=== PATIENT | male | born 1945 | race Caucasian/White ===

== ENCOUNTER 2020-03-07 21:51 | Inpatient (IN) | payer MEDICARE, OTHER ==
[~2020-03-07] VITALS: Ht 182.9 cm; Wt 88.0 kg
[2020-03-07 21:57] VITALS: BP 140/82
[2020-03-07] MEDS ORDERED: SAW PALMETTO160 MG PO (22:03)
[2020-03-07 22:30] LABS: ABSOLUTE BASOPHILS 0.1 thou/uL (0.0-0.2); ABSOLUTE LYMPHOCYTES 0.8 thou/uL (0.8-5.3); ABSOLUTE MONOCYTES 0.3 thou/uL (0.0-1.2); ABSOLUTE NEUTROPHILS 6.6 thou/uL (1.6-8.1); BASOPHILS 0.9 %; HEMATOCRIT 42.9 % (42.0-52.0); HEMOGLOBIN 14.5 gm/dL (14.0-18.0); LYMPHOCYTES 9.8 %; MCH 29.2 pg (26.0-34.0); MCHC 33.9 g/dL (28.0-37.0); MCV 86.3 fL (80.0-100.0); MONOCYTES 4.5 %; MPV 7.7 fl. (7.2-11.1); NUCLEATED RBCS 0 /100WBC; PLATELET COUNT* 196 thou/uL (150-400); POLYS 84.8 %; RBC 4.97 mil/uL (4.50-6.00); RDW-CV 13.5 % (10.5-14.5); WBC 7.7 thou/uL (4.0-11.0)
[2020-03-07 22:39] LABS: BE -1.2 mmol/L (-2 to +3); PCO2 30.6 mmHg (35.0-45.0); PO2 67.9 mmHg (75.0-100.0); pH 7.462 (7.340-7.450)
[2020-03-07 22:54] LABS: CALCIUM 8.3 mg/dL (8.5-10.1); POTASSIUM 3.1 mmol/L (3.5-5.1)
[2020-03-07 22:58] LABS: ALBUMIN 3.4 g/dL (3.4-5.0); TOTAL BILIRUBIN 0.7 mg/dL (<0.1-1.0); TOTAL PROTEIN 6.5 g/dL (6.4-8.2)
[2020-03-08] VITALS (7 sets, daily range): BP systolic 106–130; BP diastolic 56–73
[2020-03-08 02:13] LABS: URINE BILIRUBIN NEGATIVE (Negative); URINE BLOOD NEGATIVE (Negative); URINE CLARITY CLEAR; URINE COLOR YELLOW; URINE GLUCOSE-RANDOM NEGATIVE (Negative); URINE KETONES 2+ (Negative); URINE LEUKOCYTES-REFLEX NEGATIVE (Negative); URINE NITRITE-REFLEX NEGATIVE (Negative); URINE PROTEIN TRACE (Negative); URINE SPECIFIC GRAVITY >= 1.030 (1.005-1.030); URINE UROBILINOGEN 0.2 E.U./dl (0.2-1.0)
[2020-03-08 09:33] LABS: CALCIUM 8.5 mg/dL (8.5-10.1)
[2020-03-08 09:34] LABS: POTASSIUM 4.1 mmol/L (3.5-5.1)
[2020-03-08 09:36] LABS: MAGNESIUM 2.1 mg/dL (1.8-2.4); PHOSPHORUS* 3.7 mg/dL (2.5-4.9)
--- NOTE | 2020-03-08 16:15 | EKG ---
[place] [address] ELECTROCARDIOGRAM REPORT Name: JULIAN LAKE Room: [address] IN .R.#: [id number] Admission: 03/08/20 Attend Phys: Luz Song Discharge: Date of : 41 Date of Service: 03/07/202232 Report #: [id number] THIS REPORT FOR: //name// [facility] ED Test Date: 2020-03-07 Test Time: 22:33:29 Pat Name: JULIAN LAKE Department: Room: [facility] Gender: M Filler Picker: [facility] : 1945 Requested By: Sarina Thorpe Order Number: [id number] MD: Renzo Whitaker Measurements Intervals [place] Rate: 94 P: 58 HI: 139 QRS: 17 QRSD: 107 T: 34 QT: 359 QTc: 449 Interpretive Statements Sinus rhythm Minimal ST elevation, anterior leads No previous ECG available for comparison Electronically Signed On 03-08-2020 16:14:59 SETTLEMENT PROCESSOR by Renzo Whitaker [email or web address] <ELECTRONICALLY SIGNED> By: Renzo Whitaker MD, [facility] 03/08/20 1614 32 32 Renzo Whitaker MD, [facility] /EPI
[2020-03-09] VITALS (7 sets, daily range): BP systolic 97–126; BP diastolic 48–70
[2020-03-09 03:52] LABS: HEMATOCRIT 41.5 % (42.0-52.0); HEMOGLOBIN 13.7 gm/dL (14.0-18.0); MCH 28.8 pg (26.0-34.0); MCHC 33.1 g/dL (28.0-37.0); MCV 87.1 fL (80.0-100.0); RBC 4.77 mil/uL (4.50-6.00); RDW-CV 13.9 % (10.5-14.5); WBC 14.2 thou/uL (4.0-11.0)
[2020-03-09 04:19] LABS: ALBUMIN 3.2 g/dL (3.4-5.0); CALCIUM 8.8 mg/dL (8.5-10.1); CREATININE 1.3 mg/dL (0.6-1.3); MAGNESIUM 2.1 mg/dL (1.8-2.4); POTASSIUM 4.1 mmol/L (3.5-5.1); TOTAL BILIRUBIN 0.4 mg/dL (<0.1-1.0); TOTAL PROTEIN 6.1 g/dL (6.4-8.2)
[2020-03-10] VITALS (8 sets, daily range): BP systolic 101–148; BP diastolic 59–73
[2020-03-10 05:36] LABS: HEMATOCRIT 39.3 % (42.0-52.0); HEMOGLOBIN 13.1 gm/dL (14.0-18.0); MCH 28.7 pg (26.0-34.0); MCHC 33.3 g/dL (28.0-37.0); MCV 86.2 fL (80.0-100.0); MPV 7.8 fl. (7.2-11.1); NUCLEATED RBCS 0 /100WBC; PLATELET COUNT* 248 thou/uL (150-400); RBC 4.56 mil/uL (4.50-6.00); RDW-CV 13.8 % (10.5-14.5); WBC 14.8 thou/uL (4.0-11.0)
[2020-03-10 05:51] LABS: CALCIUM 8.4 mg/dL (8.5-10.1); POTASSIUM 4.1 mmol/L (3.5-5.1); TOTAL BILIRUBIN 0.5 mg/dL (<0.1-1.0); TOTAL PROTEIN 6.1 g/dL (6.4-8.2)
[2020-03-10 06:11] LABS: ABSOLUTE LYMPHOCYTES 0.6 thou/uL (0.8-5.3); ABSOLUTE MONOCYTES 0.1 thou/uL (0.0-1.2); ABSOLUTE NEUTROPHILS 14.1 thou/uL (1.6-8.1); ATYPICAL LYMPHS 1 %; PLATELET ESTIMATE ADEQUATE
[2020-03-11 00:55] VITALS: BP 134/58
[2020-03-11 04:00] VITALS: BP 124/59
[2020-03-11 05:27] LABS: ABSOLUTE LYMPHOCYTES 0.5 thou/uL (0.8-5.3); ABSOLUTE MONOCYTES 0.4 thou/uL (0.0-1.2); ABSOLUTE NEUTROPHILS 14.6 thou/uL (1.6-8.1); BASOPHILS 0.1 %; HEMOGLOBIN 13.7 gm/dL (14.0-18.0); LYMPHOCYTES 3.1 %; MCH 28.8 pg (26.0-34.0); MCHC 33.4 g/dL (28.0-37.0); MONOCYTES 2.5 %; MPV 7.6 fl. (7.2-11.1); NUCLEATED RBCS 0 /100WBC; PLATELET COUNT* 261 thou/uL (150-400); POLYS 94.3 %; RBC 4.77 mil/uL (4.50-6.00); RDW-CV 13.8 % (10.5-14.5); WBC 15.5 thou/uL (4.0-11.0)
[2020-03-11 05:41] LABS: APTT 28.8 Seconds (25.0-31.3); INR 1.1; PROTIME 11.4 Seconds (9.20-11.50)
[2020-03-11 05:44] LABS: CALCIUM 8.5 mg/dL (8.5-10.1); CREATININE 1.2 mg/dL (0.6-1.3); MAGNESIUM 2.3 mg/dL (1.8-2.4); POTASSIUM 3.9 mmol/L (3.5-5.1); TOTAL BILIRUBIN 0.6 mg/dL (<0.1-1.0); TOTAL PROTEIN 6.6 g/dL (6.4-8.2)
[2020-03-11 12:00] VITALS: BP 125/60
[2020-03-11 16:00] VITALS: BP 125/68
--- NOTE | 2020-03-11 16:58 | 2DMMODE ---
[place] [address] 2 D/M-MODE ECHOCARDIOGRAM Name: JULIAN LAEK Room: [address] IN [facility]#: [id number] Admission: 03/08/20 Attend Phys: Luz Song Discharge: Date of : 41 Date of Service: 03/11/20 1657 Report #: [id number] THIS REPORT FOR: cc: Gavin Muller MD, Matthew W. MD Holkins, John M. MD [facility] ~ APPROVED REPORT Study performed: 03/11/2020 15:30:14 EXAM: Comprehensive 2D, Doppler, and color-flow Echocardiogram Patient Location: In-Patient Room #: 109 Status: routine BSA: 2.10 HR: 87 bpm BP: 125/60 mmHg Rhythm: NSR Other Information Study Quality: Good Indications Dyspnea EDEMA, COUGH 2D Dimensions IVSd: 13.86 (7-11mm) LVOT Diam: 20.70 (18-24mm) LVDd: 50.90 mm PWd: 10.64 (7-11mm) Ascending Ao: 34.41 (22-36mm) LVDs: 33.66 (25-40mm) Aortic Root: 38.83 mm Volumes Left Atrial Volume (Systole) LA ESV Index: 33.00 mL/m2 Aortic Valve AoV Peak Vincent.: 1.45 m/s AO Peak Gr.: 8.43 mmHg LVOT Max P.37 mmHg AO Mean Gr.: 4.86 mmHg LVOT Mean P.59 mmHg LVOT Max V: 1.16 m/s AO V2 VTI: 27.46 cm LVOT Mean V: 0.73 m/s LUIZA (VTI): 2.80 cm2 LVOT V1 VTI: 22.84 [place] [address] 2 D/M-MODE ECHOCARDIOGRAM Name: JULIAN LAKE Room: [address] IN [facility].#: [id number] Admission: 03/08/20 Attend Phys: Luz Song Discharge: Date of : 41 Date of Service: 03/11/20 1657 Report #: [id number] Mitral Valve E/A Ratio: 1.28 MV Decel. Time: 267.28 ms MV E Max Vincent.: 0.76 m/s MV PHT: 77.51 ms MVA (PHT): 2.84 cm2 TDI E/Lateral E': 4.75 E/Medial E': 8.44 Medial E' Vincent.: 0.09 m/s Lateral E' Vincent.: 0.16 m/s Pulmonary Valve PV Peak Vincent.: 0.93 m/s PV Peak Gr.: 3.43 mmHg Left Ventricle The left ventricle is normal size. There is normal LV segmental wall motion. There is normal left ventricular wall thickness. Left ventricular systolic function is normal. The left ventricular ejection fraction is within the normal range. LVEF is 55%. The left ventricular diastolic function is normal. Right Ventricle The right ventricle is normal size. The right ventricular systolic function is normal. Atria The left atrium size is normal. The right atrium size is normal. Aortic Valve Mild aortic valve sclerosis. Trace aortic regurgitation. There is no aortic valvular stenosis. Mitral Valve Mild mitral annular calcification. Trace mitral regurgitation. No evidence of mitral valve stenosis. Tricuspid Valve The tricuspid valve is normal in structure. There is no tricuspid valve regurgitation noted. Pulmonic Valve The pulmonary valve is normal in structure. [place] [address] 2 D/M-MODE ECHOCARDIOGRAM Name: JULIAN LAKE Room: [address]#: [id number] Admission: 03/08/20 Attend Phys: Luz Song Discharge: Date of : 41 Date of Service: 03/11/20 1657 Report #: [id number] Great Vessels The aortic root is normal in size. IVC is normal in size and collapses >50% with inspiration. Pericardium There is no pericardial effusion. <Conclusion> The left ventricle is normal size. There is normal left ventricular wall thickness. Left ventricular systolic function is normal. The left ventricular ejection fraction is within the normal range. LVEF is 55%. The right ventricle is normal size. The left atrium size is normal. Mild aortic valve sclerosis. Trace aortic regurgitation. There is no aortic valvular stenosis. Mild mitral annular calcification. Trace mitral regurgitation. The tricuspid valve is normal in structure. IVC is normal in size and collapses >50% with inspiration. There is no pericardial effusion. There is normal LV segmental wall motion. <ELECTRONICALLY SIGNED> By: Renzo Whitaker MD, FACC 03/11/201656 56 56 Renzo Whitaker MD, FACC /INF
[2020-03-11 19:50] VITALS: BP 132/65
[2020-03-12] VITALS (7 sets, daily range): BP systolic 108–128; BP diastolic 62–73
[2020-03-12 03:54] LABS: ABSOLUTE BASOPHILS 0.1 thou/uL (0.0-0.2); ABSOLUTE LYMPHOCYTES 0.4 thou/uL (0.8-5.3); ABSOLUTE MONOCYTES 0.7 thou/uL (0.0-1.2); BASOPHILS 0.5 %; HEMATOCRIT 41.2 % (42.0-52.0); HEMOGLOBIN 13.9 gm/dL (14.0-18.0); LYMPHOCYTES 3.1 %; MCH 28.9 pg (26.0-34.0); MCHC 33.8 g/dL (28.0-37.0); MCV 85.4 fL (80.0-100.0); MONOCYTES 5.3 %; MPV 7.9 fl. (7.2-11.1); NUCLEATED RBCS 0 /100WBC; PLATELET COUNT* 328 thou/uL (150-400); POLYS 91.1 %; RBC 4.83 mil/uL (4.50-6.00); RDW-CV 13.7 % (10.5-14.5); WBC 13.2 thou/uL (4.0-11.0)
[2020-03-12 04:13] LABS: ALBUMIN 3.3 g/dL (3.4-5.0); CALCIUM 9.1 mg/dL (8.5-10.1); CREATININE 1.1 mg/dL (0.6-1.3); MAGNESIUM 2.4 mg/dL (1.8-2.4); POTASSIUM 3.7 mmol/L (3.5-5.1); TOTAL BILIRUBIN 0.6 mg/dL (<0.1-1.0); TOTAL PROTEIN 6.5 g/dL (6.4-8.2)
[2020-03-13] VITALS: BP 123/63
[2020-03-13 04:00] VITALS: BP 123/64
[2020-03-13 07:40] VITALS: BP 123/60
[2020-03-13 12:30] VITALS: BP 109/62
[2020-03-13 21:04] VITALS: BP 92/59
[2020-03-14] VITALS: BP 121/64; BP 122/59
[2020-03-14 04:00] VITALS: BP 101/63
[2020-03-14 05:28] LABS: HEMATOCRIT 43.3 % (42.0-52.0); HEMOGLOBIN 14.1 gm/dL (14.0-18.0); MCH 28.4 pg (26.0-34.0); MCHC 32.5 g/dL (28.0-37.0); MCV 87.3 fL (80.0-100.0); MPV 7.9 fl. (7.2-11.1); NUCLEATED RBCS 0 /100WBC; RBC 4.95 mil/uL (4.50-6.00); WBC 15.7 thou/uL (4.0-11.0)
[2020-03-14 05:38] LABS: PLATELET COUNT* 423 thou/uL (150-400)
[2020-03-14 05:44] LABS: ALBUMIN 3.3 g/dL (3.4-5.0); CREATININE 1.2 mg/dL (0.6-1.3); POTASSIUM 3.9 mmol/L (3.5-5.1); TOTAL BILIRUBIN 0.8 mg/dL (<0.1-1.0); TOTAL PROTEIN 6.4 g/dL (6.4-8.2)
[2020-03-14 07:11] LABS: ABSOLUTE LYMPHOCYTES 0.6 thou/uL (0.8-5.3); ABSOLUTE MONOCYTES 0.5 thou/uL (0.0-1.2); ABSOLUTE NEUTROPHILS 14.6 thou/uL (1.6-8.1); METAMYELOCYTES 4 %
[2020-03-14 07:12] LABS: PLATELET ESTIMATE ADEQUATE
[2020-03-14 08:52] VITALS: BP 110/71
[2020-03-14 12:36] VITALS: BP 118/64
[2020-03-14 17:12] VITALS: BP 121/60
[2020-03-14 20:30] VITALS: BP 119/60
[2020-03-15] VITALS (9 sets, daily range): BP systolic 115–122; BP diastolic 61–73
[2020-03-15 04:49] LABS: ABSOLUTE BASOPHILS 0.1 thou/uL (0.0-0.2); ABSOLUTE LYMPHOCYTES 0.7 thou/uL (0.8-5.3); ABSOLUTE MONOCYTES 1.3 thou/uL (0.0-1.2); ABSOLUTE NEUTROPHILS 12.7 thou/uL (1.6-8.1); BASOPHILS 0.4 %; EOSINOPHILS 0.2 %; HEMATOCRIT 41.2 % (42.0-52.0); HEMOGLOBIN 13.6 gm/dL (14.0-18.0); MCH 28.5 pg (26.0-34.0); MCHC 33.1 g/dL (28.0-37.0); MCV 86.1 fL (80.0-100.0); MONOCYTES 8.6 %; MPV 7.9 fl. (7.2-11.1); NUCLEATED RBCS 0 /100WBC; PLATELET COUNT* 377 thou/uL (150-400); POLYS 85.8 %; RBC 4.79 mil/uL (4.50-6.00); WBC 14.7 thou/uL (4.0-11.0)
[2020-03-15 04:57] LABS: ALBUMIN 3.1 g/dL (3.4-5.0); CALCIUM 8.9 mg/dL (8.5-10.1); MAGNESIUM 2.4 mg/dL (1.8-2.4); POTASSIUM 3.7 mmol/L (3.5-5.1); TOTAL BILIRUBIN 0.7 mg/dL (<0.1-1.0)
[2020-03-15] MEDS ORDERED: DOXYCYCLINE 10100 MG PO (09:00)
[2020-03-15] MEDS ORDERED: DEXAMETHASONE1 MG PO (09:36)
[2020-03-15] MEDS ORDERED: PROTONIX40 M2 PO (10:09)
[2020-03-15] MEDS ORDERED: VENTOLIN HFA 1818 GM INH (10:10)
--- NOTE | 2020-03-17 15:57 | CON ---
[address] [address] CONSULTATION Name: JULIAN LAKE Room: [address] IN M.R.#: [id number] Admission: 03/08/20 Attend Phys: Mague Bella Discharge: 03/15/20 Date of : 41 Report #: [id number] THIS REPORT FOR: cc: Gavin Muller MD, Matthew W. MD ~ Godwin Kim MD DATE OF SERVICE: 03/10/2020 REQUESTING PHYSICIAN: Dagoberto Dickson MD INDICATION FOR CONSULTATION: COVID-19. HISTORY OF PRESENT ILLNESS: This is a 74-year-old gentleman. He has no known history of smoking. The patient is now admitted on 03/08/2020 with COVID-19. His presentation was with increasing shortness of breath. The patient had also been coughing, not much sputum. He did report that he had fever and chills. He waited a few days and took symptomatic therapy at home. His respiratory status; however, continued to worsen, which is the reason that he came to the Emergency Room 2 days ago. Upon arrival, the patient was on 2 liters nasal cannula to maintain O2 saturation in the low 90s. There has been some worsening in his respiratory status and he was by this morning requiring 6.5 liters of oxygen to maintain O2 saturation in the low 90s. Some improvement has occurred since then. Currently, saturating mid 90s on 4 liters of oxygen. He does have swelling of lower extremities as below changes consistent with chronic venous insufficiency on his exam in the lower extremities as well. REVIEW OF SYSTEMS: The patient's review of systems for 12 points is negative except as mentioned above. PAST MEDICAL HISTORY: Benign prostatic hypertrophy, skin cancer. SOCIAL HISTORY: There is no known history of smoking, ethanol abuse or drug abuse. CURRENT MEDICATIONS: List in [place] reviewed. HOME MEDICATIONS: List in [place] reviewed. ALLERGIES: No known drug allergies. FAMILY HISTORY: No pertinent family history. PHYSICAL EXAMINATION: GENERAL: He is alert, awake and oriented, does [place] [address] CONSULTATION Name: JULIAN LAKE Room: [address]#: [id number] Admission: 03/08/20 Attend Phys: Mague Bella Discharge: 03/15/20 Date of : 41 Report #: [id number]. VITAL SIGNS: Has a pulse of 91 and a blood pressure of 117/62, saturating 96% on 4 liters nasal cannula, respiratory rate 17, afebrile with a temperature of 36.9. He did have a high-grade fever of 38.6 earlier today. HEENT: Head is normocephalic and atraumatic. NECK: Does not show raised JVP. CHEST: Breath sounds are decreased, but equal. No added sounds. HEART: Regular. There is no murmur. ABDOMEN: Soft and nontender. EXTREMITIES: Lower extremities do show 1+ edema. There are also changes in lower extremities consistent with chronic venous insufficiency. SKIN: However, is dry and intact. NEUROLOGICAL: Moves all extremities bilaterally equally and spontaneously with no focal deficit identified. LABORATORY DATA: The patient's chest x-rays show infiltrates consistent with COVID-19. Lab work in [facility] reviewed. ASSESSMENT/PLAN: 1. Acute hypoxemic respiratory failure secondary to COVID-19. We will continue to titrate oxygen. 2. COVID-19. I agree with dexamethasone as well as remdesivir. I also agree with convalescent plasma, already administered. 3. Pulmonary infiltrates. Agree with also covering with broad-spectrum antibiotics for secondary bacterial infections. 4. Chronic venous insufficiency/swelling of lower extremities. We will give one dose of Lasix. I also ordered venous Dopplers. We will also check a D-dimer tomorrow morning. 5. Deep vein thrombosis prophylaxis. He is on Lovenox, prophylactic dose. We will reassess tomorrow. If there is significant D-dimer elevation, then I will consider increasing this to intermediate dose. Thanks for this consultation. <ELECTRONICALLY SIGNED> By: Godwin Kim MD 03/17/20 1557 [id number] Kim MD /nt
== END 2020-03-15 17:58 | disposition home or self-care (01) | DRG 871 ==
LOC: M.ERS 21:51 → M.TBA-ER 03-08 00:22 → M.ORTHSURG 03-08 00:22
PROVIDERS: Internal Medicine; Internal Medicine Critical Care Medicine; Personal Emergency Response Attendant; ADMIT Internal Medicine; ATTEND Internal Medicine
DX: A41.89 Other specified sepsis (principal); U07.1 COVID-19; J96.01 Acute respiratory failure with hypoxia; J12.82 Pneumonia due to coronavirus disease 2019; N40.0 Benign prostatic hyperplasia without lower urinary tract symptoms; I87.2 Venous insufficiency (chronic) (peripheral); A08.4 Viral intestinal infection, unspecified; E87.6 Hypokalemia; R73.9 Hyperglycemia, unspecified; Z85.828 Personal history of other malignant neoplasm of skin